=== PATIENT | male | born 1975 | race Caucasian/White ===

== ENCOUNTER 2019-02-28 23:56 | Inpatient (IN) | payer MEDICAID ==
[2019-03-01] MEDS: LIDOCAINE/MYLANTA 40 ML BTL PO (01:19)
[2019-03-01] MEDS: KETOROLAC 15 MG INJ IV (01:20)
[2019-03-01] MEDS: SOD CHLORIDE 0.9% 1,000 ML IV ×3 (01:20→15:14)
[2019-03-01] MEDS: BELLADONNA/PHENOBARBITAL TAB PO (01:20)
[2019-03-01] MEDS: ONDANSETRON 4 MG INJ IV (01:20)
[2019-03-01 01:31] LABS: ADD MAN DIFF? NO
[2019-03-01 01:33] LABS: WHITE BLOOD COUNT 12.4 10^3/ul (4.8-10.8)
[2019-03-01 01:33] LABS: BASOPHILS % 0.2 % (0.0-2.0); EOSINOPHILS # 0.1 10^3/ul (0.0-0.5); EOSINOPHILS % 0.8 % (0.0-7.0); HEMATOCRIT 49.5 % (42.0-52.0); HEMOGLOBIN 16.8 g/dl (14.0-18.0); LYMPHOCYTES # 1.8 10^3/ul (0.8-2.9); LYMPHOCYTES % 14.7 % (15.0-51.0); MEAN CORPUSCULAR HGB CONC 33.9 g/dl (32.0-37.0); MEAN CORPUSCULAR VOLUME 91.3 fl (82.0-101.0); MEAN PLATELET VOLUME 10.8 fl (7.4-10.4); MONOCYTE # 0.7 10^3/ul (0.3-0.9); MONOCYTES % 5.7 % (0.0-11.0); NEUTROPHIL # 9.7 10^3/ul (1.6-7.5); NEUTROPHILS % 78.4 % (39.0-77.0); PLATELET COUNT 199 10^3/UL (140-415); RED BLOOD COUNT 5.42 10^6/ul (4.70-6.10); RED CELL DISTRIBUTION WIDTH 11.9 % (11.5-14.5)
[2019-03-01 01:54] LABS: ALANINE AMINOTRANSFERASE 34 IU/L (13-69); ALBUMIN 4.4 g/dl (3.3-4.9); ALBUMIN/GLOBULIN RATIO 1.41; ALKALINE PHOSPHATASE 67 IU/L (42-121); ANION GAP 9 (5-13); ASPARTATE AMINO TRANSFERASE 26 IU/L (15-46); BILIRUBIN,INDIRECT 0.7 mg/dl (0-1.1); BILIRUBIN,TOTAL 0.7 mg/dl (0.2-1.3); BLOOD UREA NITROGEN 15 mg/dl (7-20); CALCIUM 9.2 mg/dl (8.4-10.2); CARBON DIOXIDE 29 mmol/L (21-31); CHLORIDE 102 mmol/L (97-110); CREATININE 0.91 mg/dl (0.61-1.24); Estimated GFR > 60 mL/min (>60); GLUCOSE 98 mg/dl (70-220); LIPASE 55 U/L (23-300); PROTIME 13.3 Sec (11.9-14.9); SODIUM 140 mmol/L (135-144); TOTAL PROTEIN 7.5 g/dl (6.1-8.1)
[2019-03-01 01:55] LABS: PARTIAL THROMBOPLASTIN TIME 33.6 Sec (23.0-35.0)
[2019-03-01 02:04] LABS: TROPONIN-I < 0.012 ng/ml (0.000-0.120)
[2019-03-01] MEDS: PIPER-TAZO 3.375 GM IV (PMX) 100 ML IVPB ×5 (02:34→23:47)
[2019-03-01] MEDS ORDERED: NACL 0.9% 3 ML SYG IV (03:00)
[2019-03-01] MEDS ORDERED: ACETAMINOPHEN 325 MG TAB PO (03:00)
[2019-03-01] MEDS ORDERED: ONDANSETRON 4 MG INJ IV ×3 (03:00→17:30)
[2019-03-01] MEDS ORDERED: BISACODYL (EC) 5 MG TAB PO (03:00)
[2019-03-01] MEDS ORDERED: DOCUSATE SODIUM 100 MG CAP PO (03:00)
[2019-03-01] MEDS: HYDROmorphONE 0.5 MG/0.5 ML SYG IV ×2 (04:52→23:53)
[2019-03-01] MEDS ORDERED: MIDAZOLAM 1 MG/ML 2 ML INJ (15:22)
[2019-03-01] MEDS ORDERED: ROPIVACAINE 0.5 % 30 ML VIAL (15:24)
[2019-03-01] MEDS ORDERED: LIDOCAINE 2% (SDV) 5 ML INJ (16:59)
[2019-03-01] MEDS ORDERED: PROPOFOL 20 ML (16:59)
[2019-03-01] MEDS ORDERED: KETOROLAC 30 MG INJ (16:59)
[2019-03-01] MEDS ORDERED: ONDANSETRON 4 MG INJ (16:59)
[2019-03-01] MEDS ORDERED: ROCURONIUM 50 MG INJ (16:59)
[2019-03-01] MEDS ORDERED: NEOSTIGMINE 3 MG/3 ML SYRINGE (17:07)
[2019-03-01] MEDS ORDERED: GLYCOPYRROLATE 0.4 MG INJ (17:07)
[2019-03-01] MEDS: D5W-0.45 NACL + KCL 20 MEQ 1,000 ML IV ×2 (17:15→18:50)
[2019-03-01] MEDS ORDERED: DIPHENHYDRAMINE 50 MG INJ IV (17:30)
[2019-03-01] MEDS ORDERED: METOCLOPRAMIDE 10 MG INJ IV (17:30)
[2019-03-01] MEDS ORDERED: HYDROmorphONE 1 MG/5 ML IV SYRINGE IV ×2 (17:30)
[2019-03-01] MEDS ORDERED: FENTAnyl 50 MCG/ML VIAL IV (17:30)
[2019-03-01] MEDS ORDERED: hydrALAzine 20 MG INJ (17:33)
[2019-03-01] MEDS: hydrALAzine 20 MG INJ IV (17:45)
[2019-03-01] MEDS: MEPERIDINE 25 MG INJ IV ×2 (17:46→18:56)
[2019-03-01] MEDS: KETOROLAC 30 MG INJ IV (18:54)
[2019-03-01] MEDS: FAMOTIDINE 20 MG INJ IV (20:07)
[2019-03-02] MEDS: D5W-0.45 NACL + KCL 20 MEQ 1,000 ML IV ×2 (03:15→06:18)
[2019-03-02] MEDS: SOD CHLORIDE 0.9% 1,000 ML IV (03:44)
[2019-03-02] MEDS: PIPER-TAZO 3.375 GM IV (PMX) 100 ML IVPB ×2 (06:17→11:42)
[2019-03-02] MEDS: KETOROLAC 30 MG INJ IV ×2 (06:22→12:43)
[2019-03-02] MEDS: ENOXAPARIN 40 MG/0.4 ML SYG SC (06:27)
[2019-03-02] MEDS: FAMOTIDINE 20 MG INJ IV (08:54)
[2019-03-02] MEDS: HYDROmorphONE 0.5 MG/0.5 ML SYG IV (15:47)
== END 2019-03-02 16:31 | disposition home or self-care (01) | DRG 419 ==
LOC: E/R 23:56 → MS1 03-01 02:42
PROC: 0FT44ZZ Resection of Gallbladder, Percutaneous Endoscopic Approach (ICD-10-PCS; principal; 2019-03-01 15:26)
DX: K80.12 Calculus of gallbladder with acute and chronic cholecystitis without obstruction (principal)
CPT/HCPCS: 36415; 76705; 80053; 83690; 84484; 85025; 85610; 85730; 88304; 96361; 96374; 96375; 99285-25